=== PATIENT | female | born 1955 | race Caucasian/White ===

== ENCOUNTER 2024-12-03 14:43 | Emergency (ER) | payer MEDICARE, OTHER ==
[~2024-12-03] VITALS: Ht 162.6 cm; Wt 80.0 kg
--- NOTE | 2024-12-03 15:20 | RADIOLOGY REPORT ---
DI KNEE, COMP 4 VW MIN, INDICATION: RIGHT KNEE PAIN TECHNICAL DATA: Frontal , oblique and lateral views were obtained of the right knee. COMPARISON: None FINDINGS: No fracture is identified. Medial, lateral and patellofemoral compartment joint spaces are maintained . Alignment is anatomic. Soft tissues are within normal limits. No joint effusion is demonstrated. IMPRESSION: No acute fracture or dislocation of the right knee.
--- NOTE | 2024-12-03 16:43 | Physician Documentation ---
History of Present Illness ~ Chief Complaint: Knee Pain Stated Complaint: R KNEE PAIN Time Seen by MD: 17:21 HPI This is a 69-year-old female who presents with intermittent right knee pain and swelling for the past three months, patient reports that pain is worse today and worse when using her leg, patient reports he especially noticed it when utilizing her leg for driving. Patient reports no known trauma or other injury to the knee. Patient additionally reports intermittent pain to right ankle. Medication Reconciliation Allergies: Coded Allergies: No Known Allergies (Unverified , 12/03/24) Past Medical History Past Medical History: No Pertinent History Review of Systems ROS As stated above in the HPI, otherwise all systems are reviewed and negative. Physical Exam Vital Signs: Temperature: 97.2, Source: Temporal, Heart Rate: 93, Respiratory Rate: 18, BP: 133/84, Pulse Oximetry: 96, Weight: 80.000 Oxygen Flow Rate: 0 Physical Exam VITALS: Reviewed and as above. GENERAL: Alert, nontoxic appearing, no apparent distress. RESPIRATORY: No increased work of breathing, no respiratory distress, speaking in full clear sentences CHEST: Lungs clear to auscultation. CV: Heart with RRR no murmur. GI: Abdomen soft, non-tender, bowel sounds are active. MUSCULOSKELETAL: Tenderness to palpation to lateral and medial aspects of right knee on the joint line, no significant swelling to right knee or right ankle as compared to left side. SKIN: No erythema or ecchymosis to bilateral lower extremities NEURO: No focal deficits. A&Ox4. PSYCH: Pleasant, conversant, and cooperative. Progress Results/Orders Results/Orders Orders - NANO IRIZARRY TRIM SAWYER Ortho Orders (12/03/24 ) Vital Signs 12/03/24 14:50 Temp 97.2 Pulse 93 Resp 18 B/P (MAP) 133/84 Pulse Ox 96 O2 Flow Rate 0 EKG/XRAY/CT/US/VASC/MRI Bone/Soft Tissue X-Ray (Spine) : Additional Comment [address] , [place], [facility] [address] DIAGNOSTIC RADIOLOGY Patient: LIZZIE ALBERTO Medical Record: [id number] [facility] : 1955, Age: 69 Sex: Female Location: ER Patient Status: REG ER Service Date/Time: 12/03/24/ 1499 Ordering Physician: SLAVA RANDALL DO Exam: KNEE, COMP 4 VW MIN DI KNEE, COMP 4 VW MIN, INDICATION: RIGHT KNEE PAIN TECHNICAL DATA: Frontal , oblique and lateral views were obtained of the right knee. COMPARISON: None FINDINGS: No fracture is identified. Medial, lateral and patellofemoral compartment joint spaces are maintained. Alignment is anatomic. Soft tissues are within normal limits. No joint effusion is demonstrated. IMPRESSION: No acute fracture or dislocation of the right knee. Electronically Signed by:ABUNDIO COLUNGA MD Date & Time: 12/03/241517 Dictated by: ABUNDIO COLUNGA MD Dictation date and time: 12/03/241517 Primary Care Provider: NO PRIMARY CARE PROVIDER cc: SLAVA RANDALL DO ~ Medical Decision Making Findings MSE performed in triage and patient returned to ED lobby by nursing staff to await available ED room General Diff Dx:Considerations: Include: Abrasion, Contusion, Fracture, Hematoma, Laceration, Malunion, Neurovascular injury, Open fracture, Sprain, Ulcer Departure Time of Disposition: 17:55 Disposition: 01 HOME / SELF CARE / HOMELESS Impression: Primary Impression: Knee pain Qualified Codes: M25.561 - Pain in right knee Discharge Instructions: Acute Knee Pain, Adult Additional Instructions: Use the provided knee brace. Take Ibuprofen per label instructions as needed. Ice frequently. Walk with aid of crutches. Return if worse. Followup with primary care and request referral to ortho. You may also benefit from physical therapy. Referrals: NO PRIMARY CARE PROVIDER (PCP) MANI HER MD Education Educated: Patient, Family Educated regarding: diagnosis, treatment, prognosis, need for follow up Signature Scribe Signature: x Attestation: The note accurately reflects work and decisions made by me.Nano Irizarry - FREDI 12/03/24 17:56 KAREN WRIGHT Dec 03, 2024 16:43 NANO IRIZARRY NP Dec 03, 2024 17:23
[2024-12-03 18:11] VITALS: BP 142/78; PULSE 82; RESP 16; TEMP 97.3; O2SAT 96
== END 2024-12-03 18:13 | disposition home or self-care (01) ==
LOC: ER 14:44 → EDSEX 14:44 → ER 18:13
DX: M25.561 Pain in right knee (principal)
CPT/HCPCS: 73564; 99283